=== PATIENT | female | born 1965 | race Caucasian/White ===

== ENCOUNTER 2017-01-18 13:41 | Emergency (ER) | payer OTHER ==
[~2017-01-18 13:41] MED LIST: CELEXA20 MG PO; COLACE100 MG PO; LOR PO; NOR10T PO; STOOL SOFTENER100 MG PO
[2017-01-18 15:55] VITALS: BP 143/83
== END 2017-01-18 15:55 | disposition home or self-care (01) ==
LOC: ED 13:41
DX: M25.561 Pain in right knee (principal); F17.200 Nicotine dependence, unspecified, uncomplicated; Z88.2 Allergy status to sulfonamides
CPT/HCPCS: 99406

== ENCOUNTER 2017-07-09 19:32 | Emergency (ER) | payer OTHER ==
[2017-07-09 23:44] VITALS: BP 138/78
== END 2017-07-09 23:44 | disposition home or self-care (01) ==
LOC: ED 19:32
DX: S06.0X0A Concussion without loss of consciousness, initial encounter (principal); Z88.2 Allergy status to sulfonamides; V89.2XXA Person injured in unspecified motor-vehicle accident, traffic, initial encounter; Y93.89 Activity, other specified; Y99.8 Other external cause status; Y92.89 Other specified places as the place of occurrence of the external cause
CPT/HCPCS: J1170; Q0162

== ENCOUNTER 2017-11-01 07:43 | Emergency (ER) | payer OTHER ==
[~2017-11-01] VITALS: Ht 172.7 cm; Wt 72.1 kg
[2017-11-01 07:48] VITALS: Ht 172.7 cm; Wt 72.1 kg
[2017-11-01 11:13] VITALS: BP 115/80
== END 2017-11-01 11:13 | disposition home or self-care (01) ==
LOC: ED 07:43
DX: J98.01 Acute bronchospasm (principal); F17.210 Nicotine dependence, cigarettes, uncomplicated; Z90.710 Acquired absence of both cervix and uterus; Z88.2 Allergy status to sulfonamides
CPT/HCPCS: 87804; J2930; J7613; J7644

== ENCOUNTER 2017-11-02 01:16 | Emergency (ER) | payer OTHER ==
[~2017-11-02] VITALS: Ht 167.6 cm; Wt 83.9 kg
[2017-11-02 01:26] VITALS: Ht 167.6 cm; Wt 83.9 kg
[2017-11-02 05:57] VITALS: BP 134/84
== END 2017-11-02 05:57 | disposition home or self-care (01) ==
LOC: ED 01:16
DX: J20.9 Acute bronchitis, unspecified (principal); Z90.710 Acquired absence of both cervix and uterus
CPT/HCPCS: J1885; Q0162

== ENCOUNTER 2018-03-30 22:31 | Emergency (ER) | payer OTHER ==
[~2018-03-30] VITALS: Ht 172.7 cm; Wt 72.1 kg
[2018-03-30 22:56] VITALS: BP 131/88; Ht 172.7 cm; Wt 72.1 kg
== END 2018-03-31 01:14 | disposition home or self-care (01) ==
LOC: ED 22:31
DX: S63.233A Subluxation of proximal interphalangeal joint of left middle finger, initial encounter (principal); R03.0 Elevated blood-pressure reading, without diagnosis of hypertension; Z88.2 Allergy status to sulfonamides; Z90.710 Acquired absence of both cervix and uterus; X50.1XXA Overexertion from prolonged static or awkward postures, initial encounter; Y93.89 Activity, other specified; Y92.89 Other specified places as the place of occurrence of the external cause; Y99.8 Other external cause status
CPT/HCPCS: J1885

== ENCOUNTER 2018-04-03 09:52 | Emergency (ER) | payer OTHER ==
[~2018-04-03] VITALS: Ht 172.7 cm; Wt 69.8 kg
[2018-04-03 09:56] VITALS: Ht 172.7 cm; Wt 69.8 kg
[2018-04-03 13:20] VITALS: BP 130/64
== END 2018-04-03 13:20 | disposition home or self-care (01) ==
LOC: ED 09:52
DX: S56.10 Unspecified injury of flexor muscle, fascia and tendon of other and unspecified finger at forearm level (principal); Z88.2 Allergy status to sulfonamides; Z90.710 Acquired absence of both cervix and uterus; X50.1XXD Overexertion from prolonged static or awkward postures, subsequent encounter

== ENCOUNTER 2018-04-16 12:03 | Emergency (ER) | payer OTHER ==
[~2018-04-16] VITALS: Ht 172.7 cm; Wt 71.2 kg
[2018-04-16 12:09] VITALS: Ht 172.7 cm; Wt 71.2 kg
[2018-04-16 13:16] VITALS: BP 130/90
== END 2018-04-16 13:16 | disposition home or self-care (01) ==
LOC: ED 12:03
DX: S90.01XA Contusion of right ankle, initial encounter (principal); Z88.2 Allergy status to sulfonamides; Z90.49 Acquired absence of other specified parts of digestive tract; Z90.710 Acquired absence of both cervix and uterus; W50.0XXA Accidental hit or strike by another person, initial encounter; Y93.89 Activity, other specified; Y92.89 Other specified places as the place of occurrence of the external cause; Y99.8 Other external cause status

== ENCOUNTER 2018-10-11 21:54 | Emergency (ER) | payer OTHER ==
[~2018-10-11] VITALS: Ht 172.7 cm; Wt 74.0 kg
[2018-10-11 22:09] VITALS: Ht 172.7 cm; Wt 74.0 kg
[2018-10-12 01:37] VITALS: BP 140/90
== END 2018-10-12 01:37 | disposition home or self-care (01) ==
LOC: ED 21:54
DX: M25.562 Pain in left knee (principal); F32.9 Major depressive disorder, single episode, unspecified; F17.210 Nicotine dependence, cigarettes, uncomplicated; Z90.710 Acquired absence of both cervix and uterus; Z88.2 Allergy status to sulfonamides
CPT/HCPCS: J1885

== ENCOUNTER 2020-04-22 03:59 | Emergency (ER) | payer SELFPAY ==
[~2020-04-22] VITALS: Ht 175.3 cm; Wt 72.6 kg
[2020-04-22 04:10] VITALS: Ht 175.3 cm; Wt 72.6 kg
[2020-04-22 05:36] LABS: AMPHETAMINE QUAL UR POSITIVE (See below)
[2020-04-22 06:22] VITALS: BP 114/72
== END 2020-04-22 06:22 | disposition home or self-care (01) ==
LOC: ED 03:59
PROVIDERS: Emergency Medicine
DX: R51 Headache (principal); Z88.2 Allergy status to sulfonamides; Z90.49 Acquired absence of other specified parts of digestive tract
CPT/HCPCS: J1200; J1885; J2765

== ENCOUNTER 2020-06-19 07:01 | Emergency (ER) | payer SELFPAY ==
[~2020-06-19] VITALS: Ht 172.7 cm; Wt 73.9 kg
[2020-06-19 07:11] VITALS: Ht 172.7 cm; Wt 73.9 kg
[2020-06-19 08:54] VITALS: BP 120/69
== END 2020-06-19 08:54 | disposition home or self-care (01) ==
LOC: ED 07:01
DX: G43.909 Migraine, unspecified, not intractable, without status migrainosus (principal); Z90.710 Acquired absence of both cervix and uterus; Z88.2 Allergy status to sulfonamides
CPT/HCPCS: J0780; J1100; J1200

== ENCOUNTER 2020-07-28 06:21 | Emergency (ER) | payer MEDICAID ==
[~2020-07-28] VITALS: Ht 172.7 cm; Wt 70.3 kg
[2020-07-28 06:28] VITALS: Ht 172.7 cm; Wt 70.3 kg
[2020-07-28 08:44] VITALS: BP 119/62
== END 2020-07-28 08:44 | disposition home or self-care (01) ==
LOC: ED 06:21
DX: G43.909 Migraine, unspecified, not intractable, without status migrainosus (principal); F17.200 Nicotine dependence, unspecified, uncomplicated; Z90.711 Acquired absence of uterus with remaining cervical stump; Z88.2 Allergy status to sulfonamides
CPT/HCPCS: 99406; J1200; J2765; J7030

== ENCOUNTER 2020-09-01 05:32 | Emergency (ER) | payer MEDICAID ==
[~2020-09-01] VITALS: Ht 170.2 cm; Wt 77.1 kg
[2020-09-01 05:41] VITALS: Ht 170.2 cm; Wt 77.1 kg
[2020-09-01 07:40] VITALS: BP 123/60
== END 2020-09-01 07:40 | disposition home or self-care (01) ==
LOC: ED 05:32
DX: G43.909 Migraine, unspecified, not intractable, without status migrainosus (principal); R03.0 Elevated blood-pressure reading, without diagnosis of hypertension; F17.210 Nicotine dependence, cigarettes, uncomplicated; Z90.710 Acquired absence of both cervix and uterus; Z88.2 Allergy status to sulfonamides
CPT/HCPCS: 99406; J1885; J2765

== ENCOUNTER 2020-09-04 14:18 | Emergency (ER) | payer MEDICAID, SELFPAY ==
[~2020-09-04] VITALS: Ht 172.7 cm; Wt 76.7 kg
[2020-09-04 14:20] VITALS: Ht 172.7 cm; Wt 76.7 kg
[2020-09-04 16:26] VITALS: BP 142/82
== END 2020-09-04 16:26 | disposition home or self-care (01) ==
LOC: ED 14:18
DX: J02.0 Streptococcal pharyngitis (principal); F17.210 Nicotine dependence, cigarettes, uncomplicated; Z90.711 Acquired absence of uterus with remaining cervical stump; Z88.2 Allergy status to sulfonamides
CPT/HCPCS: 99406; J1885; J8540; U0003

== ENCOUNTER 2020-09-23 17:31 | Emergency (ER) | payer SELFPAY ==
[~2020-09-23] VITALS: Ht 172.7 cm; Wt 75.3 kg
[2020-09-23 17:42] VITALS: Ht 172.7 cm; Wt 75.3 kg
[2020-09-23 22:11] VITALS: BP 150/90
== END 2020-09-23 22:12 | disposition home or self-care (01) ==
LOC: ED 17:31
DX: F43.0 Acute stress reaction (principal); R51.9 Headache, unspecified; Z90.710 Acquired absence of both cervix and uterus; Z88.2 Allergy status to sulfonamides
CPT/HCPCS: J1885